=== PATIENT | male | born 1945 | race Caucasian/White ===

== ENCOUNTER 2016-02-19 17:11 | Emergency (ER) | payer MEDICARE, OTHER ==
[2016-02-19] MEDS ORDERED: LEVOFLOXACIN 500 MG TAB ONE (23:10)
[2016-02-19] MEDS ORDERED: ONDANSETRON 4 MG VIAL ONE (23:10)
[2016-02-19] MEDS ORDERED: SODIUM CHLORIDE 0.9% 1,000 ML ONE (23:10)
[2016-02-19] MEDS ORDERED: ACETAMINOPHEN 325 MG TAB ONE (23:17)
[2016-02-19] MEDS ORDERED: DUONEB INH ONE ×2 (23:18→23:19)
== END 2016-02-20 00:59 | disposition home or self-care (01) ==
LOC: ER 17:11
CPT/HCPCS: 36415 ×2; 71020 ×2; 80053 ×2; 83880 ×2; 85025 ×2; 87804 ×2; 87880 ×2; 94640 ×2; 96361 ×2; 96374 ×2; 99284; J2405